=== PATIENT | female | born 1970 | race Caucasian/White ===

== ENCOUNTER → 2017-09-22 | Outpatient (CLI) | payer BC ==
--- NOTE | 2017-09-26 09:47 | MM ---
Reason for exam: screening (asymptomatic). Last mammogram was performed 1 year and 2 months ago. History: Silicone gel implants in both breasts, April 2010. Took hormonal contraceptives for 12 years beginning at age 25. Physical Findings: A clinical breast exam by your physician is recommended on an annual basis and results should be correlated with mammographic findings. MG Screening Mammo Implant/CAD Bilateral CC, MLO, and ID view(s) were taken. Prior study comparison: August 03, 2016, bilateral MG screening mammo implant/CAD. February 02, 2016, left breast MG diag mamm implant LT w CAD. The breast tissue is heterogeneously dense. This may lower the sensitivity of mammography. Bilateral breast prothesis. ASSESSMENT: Benign, BI-RAD 2 RECOMMENDATION: Routine screening mammogram of both breasts in 1 year.
== END ==
LOC: RADMAMWWP 12:48
PROVIDERS: ATTEND Obstetrics & Gynecology
DX: Z12.31 Encounter for screening mammogram for malignant neoplasm of breast (principal)

== ENCOUNTER → 2018-11-10 | Outpatient (CLI) | payer BC ==
--- NOTE | 2018-11-10 13:43 | MM ---
Reason for exam: screening (asymptomatic). Last mammogram was performed 1 year and 2 months ago. History: Silicone gel implants in both breasts, April 2010. Took hormonal contraceptives for 12 years beginning at age 25. Taking progesterone for 1 month. Taking other hormone for 1 month. Physical Findings: A clinical breast exam by your physician is recommended on an annual basis and results should be correlated with mammographic findings. MG Screening Mammo Implant/CAD Bilateral CC, MLO, and ID view(s) were taken. Prior study comparison: September 22, 2017, bilateral MG screening mammo implant/CAD. August 03, 2016, bilateral MG screening mammo implant/CAD. The breast tissue is extremely dense which could obscure a lesion on mammography. Finding: There are typically benign round, regional calcifications in the upper outer quadrant, posterior position of the right breast. There is no discrete abnormality. Bilateral subpectoral implants redemonstrated. ASSESSMENT: Benign, BI-RAD 2 RECOMMENDATION: Routine screening mammogram of both breasts in 1 year.
== END ==
LOC: RADMAMWWP 06:58
PROVIDERS: ATTEND Obstetrics & Gynecology
DX: Z12.31 Encounter for screening mammogram for malignant neoplasm of breast (principal)
CPT/HCPCS: 77067

== ENCOUNTER → 2019-07-26 | Outpatient (CLI) | payer BC ==
--- NOTE | 2019-07-26 21:48 | BMR ---
EXAMINATION TYPE: MR breast BILAT wo con DATE OF EXAM: 07/26/2019 COMPARISON: Prior mammogram November 10, 2018 BI-RADS 2. HISTORY: Breast silicone implant status / Randall breast pain, family history of breast cancer in mom petrona marcus in her 50s. CONTRAST: Multiplanar, multisequence images of the breasts were acquired without IV contrast. TECHNIQUE: A series of fat and water weighted images in the long and short axis views of both breasts are obtained in conjunction with dynamic contrast MRI with subtraction technique. Three-dimensional and additional postprocessing imaging is created on independent workstation and reviewed [facility]. FINDINGS: Heterogeneously dense fibroglandular tissue bilaterally is redemonstrated. Breast sizes are symmetric. Symmetric subpectoral bilateral silicone implants are noted There is no free silicone sylvia ntified bilaterally to suggest extracapsular rupture. Slight symmetric infolding is noted bilaterally . No marked infolding or lingual any sign identified in either implant to suggest intracapsular ruptu re. Chest wall is intact. No suspicious axillary adenopathy is seen. IMPRESSION: No MRI evidence for intracapsular or extracapsular implant rupture in either breast.
== END | disposition home or self-care (01) ==
LOC: RADMRIMAIN 16:06
PROVIDERS: ATTEND Family Medicine
DX: N64.4 Mastodynia (principal); Z98.82 Breast implant status
CPT/HCPCS: 77047

== ENCOUNTER → 2021-07-02 | Outpatient (CLI) | payer BC ==
--- NOTE | 2021-07-03 09:43 | MM ---
Reason for exam: screening (asymptomatic). Last mammogram was performed 2 years and 8 months ago. History: Patient is postmenopausal. Silicone gel implants in both breasts, April 2010. Took hormonal contraceptives for 12 years beginning at age 25. Took progesterone for 1 month. Taking other hormone for 1 month. Physical Findings: A clinical breast exam by your physician is recommended on an annual basis and results should be correlated with mammographic findings. MG Screening Mammo Implant/CAD Bilateral CC, MLO, and ID view(s) were taken. Prior study comparison: November 10, 2018, bilateral MG screening mammo implant/CAD. September 22, 2017, bilateral MG screening mammo implant/CAD. The breast tissue is heterogeneously dense. This may lower the sensitivity of mammography. Bilateral implants are intact. No significant changes when compared with prior studies. ASSESSMENT: Benign, BI-RAD 2 RECOMMENDATION: Routine screening mammogram of both breasts in 1 year.
== END | disposition home or self-care (01) ==
LOC: RADMAMWWP 09:16
PROVIDERS: ATTEND Obstetrics & Gynecology
DX: Z12.31 Encounter for screening mammogram for malignant neoplasm of breast (principal); Z78.0 Asymptomatic menopausal state
CPT/HCPCS: 77067